=== PATIENT | female | born 1975 ===

== ENCOUNTER 2024-09-21 06:50 | Outpatient (RCR) | payer OTHER, SELFPAY | END 2024-09-21 23:59 | disposition home or self-care (01) | LOC: RPT 06:50 | PROVIDERS: ATTENDING PHYSICIAN Obstetrics & Gynecology; FAMILY PHYSICIAN Family Medicine | DX: N81.6 Rectocele (principal); R35.0 Frequency of micturition; N99.3 Prolapse of vaginal vault after hysterectomy; M62.89 Other specified disorders of muscle; Z73.6 Limitation of activities due to disability; N94.10 Unspecified dyspareunia; R10.2 Pelvic and perineal pain | CPT/HCPCS: 97163; 97530 ==

== ENCOUNTER 2024-10-26 09:06 | Outpatient (RCR) | payer OTHER, SELFPAY | END 2024-10-26 23:59 | disposition home or self-care (01) | LOC: RPT 09:06 | PROVIDERS: ATTENDING PHYSICIAN Obstetrics & Gynecology; FAMILY PHYSICIAN Family Medicine | DX: N81.6 Rectocele (principal); R35.0 Frequency of micturition; N99.3 Prolapse of vaginal vault after hysterectomy; M62.89 Other specified disorders of muscle; Z73.6 Limitation of activities due to disability; N94.10 Unspecified dyspareunia; R10.2 Pelvic and perineal pain | CPT/HCPCS: 97110; 97112; 97530 ==

== ENCOUNTER 2024-12-29 10:36 | Outpatient (RCR) | payer BC, SELFPAY | END 2024-12-29 23:59 | disposition home or self-care (01) | LOC: RPT 10:36 | PROVIDERS: ATTENDING PHYSICIAN Obstetrics & Gynecology; FAMILY PHYSICIAN Family Medicine | DX: N81.6 Rectocele (principal); N99.3 Prolapse of vaginal vault after hysterectomy; R35.0 Frequency of micturition; M62.89 Other specified disorders of muscle; Z73.6 Limitation of activities due to disability; N94.10 Unspecified dyspareunia; R10.20 Pelvic and perineal pain unspecified side | CPT/HCPCS: 97014; 97112; 97140; 97163; 97530 ==

== ENCOUNTER 2025-01-12 12:09 | Outpatient (RCR) | payer BC, SELFPAY | END 2025-01-12 23:59 | disposition home or self-care (01) | LOC: RPT 12:09 | PROVIDERS: ATTENDING PHYSICIAN Obstetrics & Gynecology; FAMILY PHYSICIAN Family Medicine | DX: R35.0 Frequency of micturition (principal); N99.3 Prolapse of vaginal vault after hysterectomy; M62.89 Other specified disorders of muscle; Z73.6 Limitation of activities due to disability; N94.10 Unspecified dyspareunia; R10.20 Pelvic and perineal pain unspecified side; N81.6 Rectocele | CPT/HCPCS: 97014; 97112; 97140; 97530 ==